=== PATIENT | male | born 1975 | race Caucasian/White ===

== ENCOUNTER 2016-12-17 20:34 | Emergency (ER) | payer BC ==
[2016-12-17 20:49] VITALS: BP 134/89
[2016-12-17] MEDS ORDERED: Amoxicillin CAP* 500 MG PO ONE (21:39)
--- NOTE | 2016-12-17 21:44 | UC ---
Ear Complaint HPI - HPI Summary HPI Summary: Patient was swimming and felt a pop then pain, hearing is decreased. increased in pain. - History of Current Complaint Chief Complaint: UCEar Stated Complaint: EAR PAIN Time Seen by Provider: 12/17/16 21:33 Hx Obtained From: Patient Onset/Duration: Sudden Onset, Lasting Hours Severity Initially: Severe Severity Currently: Moderate Associated Signs/Symptoms: Positive: Hearing Loss, Trauma to Ear - Allergies/Home Medications Allergies/Adverse Reactions: Allergies Allergy/AdvReac Type Severity Reaction Status Date / Time No Known Allergies Allergy Verified 09/05/15 07:17 PMH/Surg Hx/FS Hx/Imm Hx Previously Healthy: Yes Other History Of: Negative For: HIV, Hepatitis B, Hepatitis C, Anticoagulant Therapy - Surgical History Surgical History: Yes Surgery Procedure, Year, and Place: ear tubes; tonsils; wisdom teeth - Family History Known Family History: Positive: None Negative: Cardiac Disease, Hypertension - Social History Alcohol Use: Weekly Substance Use Type: None Smoking Status (MU): Former Smoker Review of Systems Constitutional: Negative Skin: Negative Eyes: Blurred Vision ENT: Ear Ache Respiratory: Negative Cardiovascular: Negative Gastrointestinal: Negative Genitourinary: Negative Motor: Negative Neurovascular: Negative Musculoskeletal: Negative Neurological: Headache Psychological: Negative All Other Systems Reviewed And Are Negative: Yes Physical Exam Triage Information Reviewed: Yes Appearance: Well-Appearing, Well-Nourished, Pain Distress Vital Signs: Initial Vital Signs Temp 99.1 F 12/17/16 20:44 Pulse 68 12/17/16 20:44 Resp 18 12/17/16 20:44 BP 134/89 12/17/16 20:44 Pulse Ox 99 12/17/16 20:44 Vital Signs Reviewed: Yes Eye Exam: Normal Eyes: Positive: Conjunctiva Clear ENT: Positive: TM red - RUputre of memebrane visualized in right ear, external canal red and irritated. Dental Exam: Normal Neck exam: Normal Respiratory Exam: Normal Respiratory: Positive: Chest non-tender, Lungs clear, Normal breath sounds Cardiovascular Exam: Normal Cardiovascular: Positive: RRR, No Murmur, Pulses Normal Abdominal Exam: Normal Bowel Sounds: Positive: Present Musculoskeletal Exam: Normal Neurological Exam: Normal Psychological Exam: Normal Skin Exam: Normal Ear Complaint Course/Dx - Course Course Of Treatment: hx obtained, exam performed ,meds reviewed, patient is already a patient of dr Owens, recommend follow up this week, ABX prescribed. - Differential Dx/Diagnosis Differential Diagnosis/HQI/PQRI: Cellulitis, Cerumen Impaction, Otitis Externa, Otitis Media, Perforated TM, Pharyngitis Provider Diagnoses: perforated TM of the right ear Discharge - Discharge Plan Condition: Stable Disposition: HOME Prescriptions: Amoxicillin (*) [Amoxicillin 875 MG (*)] 875 mg PO BID #19 tab Patient Education Materials: Ruptured Eardrum (ED) Additional Instructions: 1. take the medication as prescribed. 2. keep ear dry 3. Follow up with Dr Owens this week.
== END 2016-12-17 21:50 | disposition home or self-care (01) ==
LOC: UCEAST 20:34
DX: H72.91 Unspecified perforation of tympanic membrane, right ear (principal); Z87.891 Personal history of nicotine dependence
CPT/HCPCS: 99212; A9270-GY; G0463

== ENCOUNTER 2019-04-21 09:26 | Emergency (ER) | payer BC ==
[2019-04-21 09:34] VITALS: BP 141/86
--- NOTE | 2019-04-21 09:51 | UC ---
Skin Complaint HPI - HPI Summary HPI Summary: Patient is a 43-year-old male who presents to the emergency department with chief complaint of having a tick in the right side of the abdomen. He reports he was working in the yard yesterday and this morning when she took a shower he noticed a tick. There is no engorgement. There is no rash. No fevers or chills. No other complaints. - History of Current Complaint Chief Complaint: UCSkin Time Seen by Provider: 04/21/19 09:36 Stated Complaint: TICK BITE Hx Obtained From: Patient Onset/Duration: Sudden Onset Skin Exposure Onset/Duration: Hours Ago Onset Severity: Mild Current Severity: Mild Pain Intensity: 0 - Allergy/Home Medications Allergies/Adverse Reactions: Allergies Allergy/AdvReac Type Severity Reaction Status Date / Time No Known Allergies Allergy Verified 04/21/19 09:34 PMH/Surg Hx/FS Hx/Imm Hx Previously Healthy: Yes Other History Of: Negative For: HIV, Hepatitis B, Hepatitis C, Anticoagulant Therapy - Surgical History Surgical History: Yes Surgery Procedure, Year, and Place: ear tubes; tonsils; wisdom teeth - Family History Known Family History: Positive: None, Non-Contributory Negative: Cardiac Disease, Hypertension - Social History Alcohol Use: Weekly Substance Use Type: None Smoking Status (MU): Former Smoker Review of Systems All Other Systems Reviewed And Are Negative: Yes Constitutional: Positive: Negative Skin: Positive: Other - Tick Eyes: Positive: Negative ENT: Positive: Negative Respiratory: Positive: Negative Cardiovascular: Positive: Negative Gastrointestinal: Positive: Negative Genitourinary: Positive: Negative Motor: Positive: Negative Neurovascular: Positive: Negative Musculoskeletal: Positive: Negative Neurological: Positive: Negative Psychological: Positive: Negative Is Patient Immunocompromised?: No Physical Exam - Summary Physical Exam Summary: VITAL SIGNS: Reviewed. GENERAL: Patient is a well developed and nourished male who is lying comfortably in the stretcher. Patient is not in any acute respiratory distress. HEAD AND FACE: No signs of trauma. No ecchymosis, hematomas or skull depressions. No sinus tenderness. EYES: PERRLA, EOMI x 2, No injected conjunctiva, no nystagmus. EARS: Hearing grossly intact. Ear canals and tympanic membranes are within normal limits. MOUTH: Oropharynx within normal limits. NECK: Supple, trachea is midline, no adenopathy, no JVD, no carotid bruit, no c- spine tenderness, neck with full ROM. CHEST: Symmetric, no tenderness at palpation LUNGS: Clear to auscultation bilaterally. No wheezing or crackles. CVS: Regular rate and rhythm, S1 and S2 present, no murmurs or gallops appreciated. ABDOMEN: Soft, non-tender. No signs of distention. No rebound no guarding, and no masses palpated. Bowel sounds are normal. EXTREMITIES: FROM in all major joints, no edema, no cyanosis or clubbing. NEURO: Alert and oriented x 3. No acute neurological deficits. Speech is normal and follows commands. SKIN: Dry and warm. Tick in the right side of the abdomen Triage Information Reviewed: Yes Appearance: Well-Appearing Vital Signs: Initial Vital Signs Temp 98.4 F 04/21/19 09:31 Pulse 81 04/21/19 09:31 Resp 15 04/21/19 09:31 BP 141/86 04/21/19 09:31 Pulse Ox 98 04/21/19 09:31 Vital Signs Reviewed: Yes Course/Dx - Course Course Of Treatment: The tick was removed. No complications. He has no engorgement. Less than 72 hours. Therefore no prophylaxis or treatment at this time. Patient follow with the primary care physician the next 2-3 days. - Diagnoses Provider Diagnosis: Tick bite Discharge ED - Sign-Out/Discharge Documenting (check all that apply): Patient Departure All imaging exams completed and their final reports reviewed: No - Discharge Plan Condition: Stable Disposition: HOME Patient Education Materials: Tick Bite (ED) Referrals: Tank Camarena MD [Primary Care Provider] - Additional Instructions: F/u with PCP in 2 -3 days if needed - Billing Disposition and Condition Condition: STABLE Disposition: Home
--- NOTE | 2019-04-22 11:52 | UC ---
- Progress Note Progress Note: No imaging studies to review. Course/Dx - Diagnoses Provider Diagnoses: Tick bite Discharge ED - Sign-Out/Discharge Documenting (check all that apply): Post-Discharge Follow Up All imaging exams completed and their final reports reviewed: No Studies - Discharge Plan Condition: Stable Disposition: HOME Patient Education Materials: Tick Bite (ED) Referrals: Tank Camarena MD [Primary Care Provider] - Additional Instructions: F/u with PCP in 2 -3 days if needed - Billing Disposition and Condition Condition: STABLE Disposition: Home
== END 2019-04-21 10:00 | disposition home or self-care (01) ==
LOC: UCEAST 09:26
DX: S30.861A Insect bite (nonvenomous) of abdominal wall, initial encounter (principal); W57.XXXA Bitten or stung by nonvenomous insect and other nonvenomous arthropods, initial encounter; Y92.9 Unspecified place or not applicable
CPT/HCPCS: 99211; G0463